=== PATIENT | male | born 1950 | race Caucasian/White ===

== ENCOUNTER 2021-01-12 15:34 | Inpatient (IN) | payer OTHER, MEDICARE ==
[~2021-01-12] VITALS: Ht 180.3 cm; Wt 74.4 kg
[2021-01-13 00:17] VITALS: BP 126/75
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
--- NOTE | 2021-01-13 05:51 | NUR ---
RESTLESS AND PACING IN HALLWAYS UNTIL APPROX 0345 LAST PM STATES CANT SLEEP NOT SURE WHY. DENIES ACUTE ANXIETY OR PAIN-STATIMG "ITS JUST BEEN A LONG DAY CAN'T WIND DOWN"OFFERED TRAZODONE EARLIER INSHIFT FOR SLEEP BUT RELUCTANT TO TAKE STATING "I WASN;T TAKINGTHAT BEFORE LET ME TALK TO MY COUSIN 1ST. DID TAKE ATIVAN 0.5MG PO PRN AT APPROX 0345 AND APPEARS TO SLEEP WITHIN 10 MINUTES
[2021-01-13 08:00] VITALS: BP 144/89
[2021-01-13 10:00] VITALS: BP 144/59
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
[2021-01-13 21:40] VITALS: BP 112/65
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
[2021-01-14 04:55] LABS: ABSOLUTE NEUTROPHILS 5.2 thou/uL (1.4-8.2); BASOPHILS 0.6 % (0.0-2.0); HEMATOCRIT 36.7 % (42.0-52.0); HEMOGLOBIN 12.2 gm/dL (14.0-18.0); LYMPHOCYTES 16.6 % (24.0-44.0); MCH 31.7 pg (26.0-34.0); MCHC 33.3 g/dL (28.0-37.0); MCV 95.4 fL (80.0-100.0); MONOCYTES 6.2 % (1.0-8.0); PLATELET COUNT 155 thou/uL (150-400); POLYS 73.6 % (36.0-66.0); RBC 3.85 mil/uL (4.50-6.00); RDW 14.7 % (10.5-14.5); WBC 7.1 thou/uL (4.0-11.0)
[2021-01-14 05:08] LABS: ALBUMIN 3.2 g/dL (3.4-5.0); CALCIUM 8.5 mg/dL (8.5-10.1); CREATININE 0.9 mg/dL (0.7-1.3); POTASSIUM 4.1 mmol/L (3.5-5.1); TOTAL BILIRUBIN 0.5 mg/dL (0.2-1.0); TOTAL PROTEIN 5.6 g/dL (6.4-8.2)
[2021-01-14 07:20] VITALS: BP 144/94
[2021-01-14 10:09] VITALS: BP 144/94
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
--- NOTE | 2021-01-14 16:42 | NUR ---
SW spoke to pt's DPOA, Sandrine and completed his psychosocial and tx plan.
[2021-01-14 19:29] VITALS: BP 100/58
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
[2021-01-14 22:46] VITALS: BP 100/58
[2021-01-15 09:03] VITALS: BP 115/65
--- NOTE | 2021-01-15 09:10 | NUR ---
Nutrition: pt admitted to [facility] unit with major neurocognitive disorder with behavioral disturbance. New admission. PMH of CVA, vascular dementia. Having some visual hallucinations. Labs/meds reviewed. On statin, MVI. No weight changes indicated and BMI is WNL. Pt eating 75-100% of meals on regular diet since admission. Consider low nutrition risk.
[2021-01-15 12:58] VITALS: BP 115/65
--- NOTE | 2021-01-15 13:16 | EKG ---
[address] [address] ELECTROCARDIOGRAM REPORT Name: VILLA MCCLURE [facility].R[facility] [id number] Admission: 01/12/21 Attend Phys: Bhargav Fox MD Discharge: Date of : 48 Report #: [id number] [facility] Test Date: 2021-01-15 Test Time: 11:34:44 Pat Name: VILLA MCCLURE Department: Room: [facility] B Gender: M Coordinating Producer: MINDA : 1950 Requested By: Avelino Dubon Order Number: [id number] MD: Mario Argueta Measurements Intervals [place] Rate: 60 P: 1 DE: 190 QRS: 49 QRSD: 85 T: 54 QT: 426 QTc: 426 Interpretive Statements Sinus rhythm Baseline wander in lead(s) V1,V6 No previous ECG available for comparison Electronically Signed On 01-15-2021 13:16:18 CONCRETE PLACEMENT EQUIPMENT OPERATOR by Mario Argueta [email or web address] <ELECTRONICALLY SIGNED> By: Mario Argueta MD 01/15/21 1316 1134 1134 Mario Argueta MD /[id number]
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
[2021-01-15 19:15] VITALS: BP 115/70
--- NOTE | 2021-01-16 05:17 | NUR ---
01-15-21 CARE TRANSFERRED 1900 OBSERVED PT SITTING IN DAY ROOM. PT AAOX1, VSS, RR EVEN AND NONLABORED ON RA, PT DENIES SI/HI AND PAIN. PT PLESANT, CALM AND COOPERATIVE. ZERO S/S OF ACUTE DISTRESS NOTED, PT WILL CONTINUE TO BE MONITOR PER [facility] PROTOCOL.
[2021-01-16 10:46] VITALS: BP 139/86
--- NOTE | 2021-01-16 13:31 | NUR ---
1300 RESUMMED CARE FROM OVERNIGHT SHIFT THIS AM, PATIENT IN DAY ROOM QUIET. PATIENT ATE BREAKFAST TOOK MEDICATION WITHOUT INCIDENCE, PATIENT DENIES SI/HI/AH/VH AT PRESENT. PATIENT IS ALERT ORIENTED TO SELF ONLY PATIENTS ABDOMEN SOFT BOWEL SOUNDS PRESENT. PATIENT CALM COOPERATIVE WAS TRYING TO GET OUT WHEN HE SEES PEOPLE LEAVING UNIT. I EXPLAINED TO PATIENT HE CANNOT LEAVE UNTIL THE DOCTOR SAYS HE CAN. PATIENT PARTICIPATED IN GROUPS WILL CONTINUE TO MONITOR PATIENT PATIENT FOR SAFETY AND BEHAVIORS.
--- NOTE | 2021-01-16 16:44 | NUR ---
MANPREET spoke to pt's DPOA Sandrine who inquired about pt's discharge date. MANPREET informed that has not been determined at this point. Sandrine stated she was told that he would only need to be hospitalized for 2 days. MANPREET apologized she was given inaccurate information at the other hospital and explained patient needs to be assessed to determine what a tx plan is and then monitored to determine how well he is responding. MANPREET offered to have Dr. Fox call her to discuss her concerns. MANPREET also coordinated a zoom call with patient. Sandrine stated she does not want clinical information being sent to the [facility]. MANPREET explained this was necessary for continuity of care. She asked that this not be done. MANPREET passed the information to the medical team for discussion. SW team will continue to monitor.
[2021-01-16 19:31] VITALS: BP 115/67
--- NOTE | 2021-01-17 04:40 | NUR ---
01-16-21 CARE TRANSFERRED 1900 OBSERVED PT SITTING IN DAY ROOM WATCHING TV. PT AAOX1, VSS, RR EVEN AND NONLABORED ON RA. PT DENIES SI/HI AND PAIN. PT HAS REMAINED CALM WITH FLAT EFFECT, UNTIL HE STARTED TALKING ABOUT WORKING [facility] [employer] AND RETIRING FROM SCHOOL, PT ENGAGED IN CONVERSATION. PT HAD NO DIFFICULTIES TAKING MEDICATION WHOLE WITH WATER. LATER NOTED, PT HAD NO DIFFICULTIES FINDING HIS ROOM. ZERO S/S OF ACUTE DISTRESS NOTED, PT WILL CONTINUE TO BE MONITOR PER [facility] PROTOCOL.
[2021-01-17 09:50] VITALS: BP 129/75
--- NOTE | 2021-01-17 11:46 | NUR ---
MANPREET spoke with Erin with [facility] at [phone]. Fax number is [phone]. Erin said that they have moved pt's brother to a new room so that when pt returns he will not be agitated when his brother receives care. Erin said overall pt is a gentle person; they would like him to not be combative when he returns. They are okay with his delusions and his exit seeking; he utilizes a Wanderguard. Erin said that pt's DPOA was not established before a month ago. She said that both Sandrine and Natacha struggle to understand pt's dementia dx, and the importance of being covid safe. They are under the belief that he is normal and they spend short amounts of time with him when they take him to his appointments. Right now they are not allowing family to see pt, but they made this exception for pt since Sandrine was insistent on taking him to his appointments. She said that they recently had a meeting with Sandrine and Natacha to discuss dementia and pt's decline. However, Sandrine has called another meeting to occur today. MANPREET faxed updates to Erin. She acknowledged that updates were faxed on 01/15 as well and has been reading the documentation concerning pt. MANPREET team will continue to follow pt during her stay on this unit.
--- NOTE | 2021-01-17 17:03 | NUR ---
0700 ASSUMED CARE OF PATIENT, PATIENT IN BED SLEEPING. PATIENT OUT TO DAYROOM AMB WITH STEADY GAIT FOR BREAKFAST. PATIENT QUIET AND COOPERATIVE. LS CLEAR, BS ACTIVE, NO C/O PAIN. MEDICATIONS TAKEN WHOLE WITHOUT DIFFICULTY. PATIENT PRESENT IN GROUP. PATIENT DENIES SI/HI. FLAT AFFECT NOTED, A & O X 1-2. WILL CONTINUE TO OBSERVE
[2021-01-17 19:58] VITALS: BP 109/53
[2021-01-17 23:01] VITALS: BP 109/53
--- NOTE | 2021-01-17 23:07 | NUR ---
Assumed care on 01/17/21 @ 1900, in bed and napping in the evening. Awakens to voice, Allows assessment and compliant with medication administration, takes meds whole, but chews medication. Oriented x1 with a flat affect noted. Returns to sleep after medication administration. Will continue to monitor as per unit protocol for safety and comfort. Bed in low position.
[2021-01-18 09:27] VITALS: BP 126/89
--- NOTE | 2021-01-18 09:31 | NUR ---
0700 ASSUMED CARE OF PATIENT, PATIENT IN ROOM SLEEPING AT THAT TIME. PATIENT AMB TO DAYROOM WITH STEADY GAIT. QUIET AND FLAT AFFECT NOTED. NO C/O PAIN. SITS QUIETLY AT TABLE FOR BREAKFAST. MEDICATION TAKEN WHOLE WITHOUT DIFFICULTY. PRESENT IN GROUP THIS AM.
--- NOTE | 2021-01-18 13:00 | NUR ---
MANPREET discussed with Dr. Dubon pt's situation. Dr. Dubon and MANPREET reviewed pt's chart; he has not received an IM injection since 01/14 and has not had combative behaviors. Dr. Dubon agreed that pt can discharge as early as tomorrow. MANPREET contacted Erin with [facility] and was told she was out at the moment, but when she returns she will contact MANPREET. MANPREET team will continue to follow pt during his stay on this unit.
[2021-01-18 19:46] VITALS: BP 115/68
--- NOTE | 2021-01-19 09:05 | NUR ---
MANPREET D/C NOTE MANPREET received a call from Erin stating that pt uses another pharmacy and needs his prescriptions to be e-scribed to [facility] [place] [id number] . MANPREET relayed this to the nursing staff.
[2021-01-19 09:18] VITALS: BP 111/69
--- NOTE | 2021-01-19 09:23 | NUR ---
0700 ASSUMED CARE OF PATIENT, PATIENT AWAKE IN ROOM. AMB TO DAYROOM WITH WALKER, SITS AT TABLE WITH COFFEE IN HAND. SLURRY MIXER APPROCHES PATIENT AND PATIENT PARANOID AND DOES NOT WANT ANYONE CLOSE TO HIM. LAB APPROCHED AT SAME TIME AND INTRODUCED HERSELF LAB TO DRAW BLOOD. PATIENT STATES "NO YOU ARE NOT LAB". SLURRY MIXER ASKED WASHER BLANKET TO TURN BADGE AROUND AND TECH APPROCHED PATIENT AND PATIENT STARTED YELLING GET AWAY PLUS CURSING AT TECH. I WAS ABLE TO CALM PATIENT DOWN, PATIENT STATES "DO NOT POINT AT ME, MOVE YOUR HANDS FAST, GET IN MY FACE AND YOU NEED TO ASK ME BEFORE YOU GIVE ME MEDS OR DO ANYTHING". SLURRY MIXER WAS ABLE TO GIVE MEDS TAKEN WHOLE. PATIENT REFUSED DICLOFENAC AT THIS TIME. PATIENT WATCHES WRITERS MOVEMENT TELLING ME "YOU POINTED AT ME", "STEP AWAY". PATIENT IS PRESENT IN GROUP SITTING AT TABLE ALONE. VS- BP 167/87 P 78 R 18 T 97.2 O2 SATS 97%. PATIENT DOES REQUEST A BATH LATER. WILL CONTINUE TO OBSERVE
[2021-01-19] MEDS ORDERED: EXELON1 EACH TRANSDERM (10:54)
[2021-01-19] MEDS ORDERED: CLOPIDOGREL75 MG PO (10:54)
[2021-01-19] MEDS ORDERED: TRAZODONE HCL50 MG PO (10:55)
[2021-01-19] MEDS ORDERED: LIPITOR40 MG PO (10:55)
[2021-01-19] MEDS ORDERED: COLACE 100 MG100 MG PO (10:57)
[2021-01-19] MEDS ORDERED: SEROQUEL 100 M100 M1 PO (10:57)
[2021-01-19] MEDS ORDERED: SEROQUEL 25 MG25 M1 PO (10:57)
[2021-01-19] MEDS ORDERED: PEPCID20 MG PO (10:58)
[2021-01-19] MEDS ORDERED: CENTRUM SILVER1 EAC4 PO (10:58)
--- NOTE | 2021-01-19 12:27 | NUR ---
0700 ASSUMED CARE OF PATIENT, PATIENT IN ROOM AT THAT TIME. PATIENT OUT TO DAYROOM AT 0725 FOR BREAKFAST. PATIENT IS QUIET AND CALM DENIES NEEDS AT THAT TIME. MEDICATIONS GIVEN WHOLE WITHOUT DIFFICULTY. PATIENT ATTENDS GROUP THIS AM. PATIENT CHANGED INTO PERSONAL CLOTHING FOR DC. FAMILY CALLED AT 1040 TO NOTIFY FIELD COUNSEL THAT THEY ARRIVED EARLY AND WILL WAIT IN PARKING LOT. PATIENT TRANSFERED TO WITH BELONGING IN HAND. TO VEHICLE ACCOMPANIED BY RN AND DR FARNSWORTH. SPOKE WITH DINORA DYSON PATIENT TRANSFERED TO VEHICLE AND DC'D AT 1120AM.
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
== END 2021-01-19 11:20 | DRG 57 ==
LOC: SBH
PROVIDERS: Nurse Practitioner Family; ADMIT Psychiatry & Neurology Psychiatry; ATTEND Psychiatry & Neurology Psychiatry
DX: G30.9 Alzheimer's disease, unspecified (principal); F01.51 Vascular dementia, unspecified severity, with behavioral disturbance; F02.81 Dementia in other diseases classified elsewhere, unspecified severity, with behavioral disturbance; E46 Unspecified protein-calorie malnutrition; E78.5 Hyperlipidemia, unspecified; G47.00 Insomnia, unspecified; Z20.822 Contact with and (suspected) exposure to COVID-19; Z68.22 Body mass index [BMI] 22.0-22.9, adult; Z86.73 Personal history of transient ischemic attack (TIA), and cerebral infarction without residual deficits
CPT/HCPCS: 10880

== ENCOUNTER 2021-01-12 20:45 | Emergency (ER) | payer OTHER, MEDICARE ==
[~2021-01-12] VITALS: Ht 170.2 cm; Wt 56.7 kg
[2021-01-12 23:38] VITALS: BP 142/78
== END 2021-01-12 23:41 ==
LOC: ER 20:45
DX: R45.1 Restlessness and agitation (principal); F03.90 Unspecified dementia, unspecified severity, without behavioral disturbance, psychotic disturbance, mood disturbance, and anxiety; I10 Essential (primary) hypertension; E78.5 Hyperlipidemia, unspecified; Z20.822 Contact with and (suspected) exposure to COVID-19